=== PATIENT | female | born 1940 | race Caucasian/White ===

== ENCOUNTER → 2016-09-07 | Outpatient (REF) ==
[2016-09-07 18:50] LABS: THYROID STIMULATING HORMONE < 0.015 uIU/mL (0.465-4.680)
== END ==
LOC: ZLAB.WCH 17:51
PROVIDERS: Internal Medicine
DX: Z01.89 Encounter for other specified special examinations (principal)

== ENCOUNTER → 2016-10-15 | Outpatient (REF) | LOC: ZLAB.WCH 13:20 | PROVIDERS: Internal Medicine | DX: Z01.89 Encounter for other specified special examinations (principal) ==

== ENCOUNTER → 2016-11-26 | Outpatient (REF) ==
[2016-11-26 11:11] LABS: THYROID STIMULATING HORMONE 0.251 uIU/mL (0.465-4.680)
== END ==
LOC: ZLAB.WCH 10:21
PROVIDERS: Internal Medicine
DX: Z01.89 Encounter for other specified special examinations (principal)

== ENCOUNTER → 2017-07-30 | Outpatient (REF) | LOC: ZLAB.WCH 18:04 | DX: Z01.89 Encounter for other specified special examinations (principal) ==

== ENCOUNTER → 2017-12-09 | Outpatient (REF) | LOC: ZLAB.WCH 14:19 | DX: Z01.89 Encounter for other specified special examinations (principal) ==

== ENCOUNTER → 2018-03-01 | Outpatient (REF) | LOC: ZLAB.WCH 16:08 | DX: Z01.89 Encounter for other specified special examinations (principal) ==

== ENCOUNTER → 2018-03-10 | Outpatient (REF) | LOC: ZLAB.WCH 15:49 | DX: Z01.89 Encounter for other specified special examinations (principal) ==

== ENCOUNTER → 2018-04-01 | Outpatient (REF) | LOC: ZLAB.WCH 16:00 | DX: Z01.89 Encounter for other specified special examinations (principal) ==

== ENCOUNTER → 2018-05-27 | Outpatient (REF) | LOC: ZLAB.WCH 15:40 | DX: Z01.89 Encounter for other specified special examinations (principal) ==

== ENCOUNTER → 2018-08-04 | Outpatient (REF) | LOC: ZLAB.WCH 16:03 | DX: Z01.89 Encounter for other specified special examinations (principal) ==

== ENCOUNTER → 2020-09-19 | Outpatient (CLI) | payer MEDICARE | LOC: ZCOL.LAB 15:44 | DX: Z01.89 Encounter for other specified special examinations (principal) ==

== ENCOUNTER → 2020-09-19 | Outpatient (REF) | LOC: ZLAB.WCH 15:41 | DX: Z01.89 Encounter for other specified special examinations (principal) ==

== ENCOUNTER → 2022-10-06 | Outpatient (CLI) | payer MEDICARE | LOC: COL.RAD 11:35 | DX: M16.0 Bilateral primary osteoarthritis of hip (principal) ==